=== PATIENT | male | born 1935 | race African-American/Black ===

== ENCOUNTER 2017-05-01 08:53 | Inpatient (IN) | payer OTHER ==
[~2017-05-01] VITALS: Ht 172.7 cm; Wt 47.9 kg
[2017-05-01] VITALS (57 sets, daily range): BP systolic 42–146; BP diastolic 14–100
--- NOTE | ~2017-05-01 | HC ---
[facility] [place] [address] CONSULTATION Name: TESFAYECOMPA Marly Room #: 248-P [facility] IN ..#: [id number] Admission: 05/01/17 Attend Phys: Zena Kessler MD Discharge: 05/02/17 Date of : 37 Report #: [id number] THIS REPORT FOR: //name// CC: Ant Kessler DATE OF SERVICE: 05/01/2017 REASON FOR CONSULTATION: I was asked to evaluate concerning possible septic shock. HISTORY OF PRESENT ILLNESS: The patient is an 81-year-old [facility] resident with history of Parkinson disease, dementia, hypothyroidism and hepatitis B infection. He presents to the Emergency Room with altered mental status and hypoglycemia at the [facility] with his blood sugar in the 30s. He did receive 1 amp of D50 by EMS and now his blood sugars at presentation were over 500. The patient was unable to give any details. He was cachectic. He was found to have significant acute renal failure, hypernatremia, and lactic acidosis. Initial chest x-ray was concerning for free air under the diaphragm. CT scan performed, however, shows markedly dilated colon consistent with ileus and some basilar infiltrates. ALLERGIES: No known allergies. MEDICATIONS: Prior to his admission included amlodipine, aspirin, atorvastatin, isosorbide mononitrate, lamivudine, lorazepam, melatonin, multivitamin, omeprazole, oxybutynin, Seroquel, Sinemet, and tamsulosin. PAST MEDICAL HISTORY: Dementia, Parkinson disease, hypothyroidism, dysphagia, hepatitis B, hyperlipidemia, schizophrenia, hypertension. FAMILY HISTORY: Noncontributory. SOCIAL HISTORY: Unclear other than a [facility] resident. REVIEW OF SYSTEMS: Unable to obtain. PHYSICAL EXAMINATION: GENERAL: The patient was responsive to painful stimuli. Nonverbal. VITAL SIGNS: Blood pressure 81/33 with a MAP of 48 on vasopressors, on BiPAP. Right upper extremity PICC in place. SKIN: Xerosis. The patient was cachectic. EYES: Jaundiced. NECK: Supple. LUNGS: Fine crackles heard in the bases. HEART: Regular, without murmur. [facility] [address] [place] [address] CONSULTATION Name: CARLINCOMPA Room #: 248-P [facility] IN ..#: [id number] Admission: 05/01/17 Attend Phys: Zena Kessler MD Discharge: 05/02/17 Date of : 37 Report #: [id number] ABDOMEN: Moderately distended, did not appear tender, no hepatosplenomegaly or mass appreciated. EXTERNAL GENITALIA: Unremarkable with indwelling Ramos catheter. EXTREMITIES: Unremarkable. LABORATORY STUDIES: Sodium initially 176, now 169; potassium 6.1, bicarbonate of 7, and creatinine 5.7. Blood glucose 672, calcium 7.3, AST 3362, ALT 1471, alkaline phosphatase 81, bilirubin 3.4, INR 1.4, albumin 2.8, hemoglobin 12, platelet count 35,000, white count 12.4. TSH 0.5. Urinalysis unremarkable. Influenza antigen negative. Blood cultures pending. ABG on 100% BiPAP, pO2 of 592, pCO2 of 23, pH 7.14, bicarbonate of 8, lactate of 16. IMAGING: Ultrasound of the abdomen shows sludge and gallstones in the gallbladder, otherwise unremarkable. CT of the abdomen showed some reticulonodular-type infiltrates in both lower lobes with distended colon consistent with ileus. IMPRESSION: An 81-year-old [facility] resident with schizophrenia, Parkinson's, hypertension, hepatitis B, presents with lactic acidosis and acute renal failure with hypernatremia, hyperkalemia, hepatitis, significant lactic acidosis, thrombocytopenia, bilateral basilar infiltrates. I am suspecting lactic acidosis may be related to his lamivudine that was used for his hepatitis B in the setting of his renal failure. This could give the hepatitis and lactic acidosis changes. Although removal of the lamivudine may cause a rebound in his hepatitis B, I do not think we have a choice at this time. He is critically ill. I have discussed the case with Pulmonary Medicine and nursing at the bedside. Nephrology is also assisting. PLAN: We will empirically keep him on antibiotics adjusted for his renal failure. Follow his laboratory studies closely. We will readdress his hepatitis B if he should pull through. <ELECTRONICALLY SIGNED> By: Shine Olmos MD 05/10/17 1622 [id number] Shine Olmos MD /nt
--- NOTE | ~2017-05-01 | EKG ---
[address] [address] ELECTROCARDIOGRAM REPORT Name: COMPA CARLIN Room #: 248-P [facility] IN M.R.#: [id number] Admission: 05/01/17 Attend Phys: Zena Kessler MD Discharge: 05/02/17 Date of : 37 Report #: [id number] THIS REPORT FOR: //name// [facility] ED Test Date: 2017-05-01 Test Time: 10:41:12 Pat Name: COMPA CARLIN Department: Room: 248 Gender: M Automated Access Systems Technician: Guillermo MONTANEZ : 1935 Requested By: Cornelius Nieto Order Number: [id number] MD: Tom Etienne Measurements Intervals Mcintosh Rate: 105 P: 0 IN: 108 QRS: 109 QRSD: 137 T: 47 QT: 445 QTc: 589 Interpretive Statements Sinus tachycardia Nonspecific intraventricular conduction delay Inferolateral infarct, old Artifact in lead(s) II,III,aVL,aVF,V1,V5,V6 No previous ECG available for comparison Electronically Signed On 05-02-2017 8:07:09 [employer]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
--- NOTE | ~2017-05-01 | 2DMMODE ---
[facility] [address] [place] [address] 2 D/M-MODE ECHOCARDIOGRAM Name: COMPA CARLIN Room #: 248-P [facility] IN [facility].#: [id number] Admission: 05/01/17 Attend Phys: Zena Kessler MD Discharge: 05/02/17 Date of : 37 Date of Service: 05/02/17 0846 Report #: [id number] THIS REPORT FOR: //name// APPROVED REPORT Study performed: 05/01/2017 23:23:53 EXAM: Comprehensive 2D, Doppler, and color-flow Echocardiogram Patient Location: Bedside Room #: 248 Status: stat BSA: 1.55 HR: 62 bpm BP: 117/82 mmHg Other Information Study Quality: Good Indications Arrhythmia Murmur Renal Failure 2D Dimensions LVEF(%): 24.83 (>50%) IVSd: 13.45 (7-11mm) LVOT Diam: 19.00 (18-24mm) LVDd: 46.23 mm PWd: 12.65 (7-11mm) LVDs: 40.96 (25-40mm) Aortic Root: 28.52 mm Argueta's LVEF: 24.83 % Aortic Valve AoV Peak Kannan.: 1.07 m/s AO Peak Gr.: 4.62 mmHg LVOT Max P.78 mmHg LVOT Max V: 0.66 m/s ZBIGNIEW Vmax: 1.84 cm2 AI Vmax: 3.69 m/s AI Sac: 1.21 m/s2 AI PHT: 902.64 ms Pulmonary Valve PV Peak Kannan.: 0.67 m/s PV Peak Gr.: 1.80 mmHg Left Ventricle [facility] [address] [place] [address] 2 D/M-MODE ECHOCARDIOGRAM Name: COMPA CARLIN Room #: 248-P [facility]#: [id number] Admission: 05/01/17 Attend Phys: Zena Kessler MD Discharge: 05/02/17 Date of : 37 Date of Service: 05/02/17 0846 Report #: [id number] The left ventricle is normal size. Moderate concentric left ventricular hypertrophy. Left ventricular systolic function is severely decreased. Discordant septal motion LVEF is 25%-30%. This study is not technically sufficient to allow evaluation of the LV diastolic function. Right Ventricle The right ventricle is normal size. The right ventricular systolic function is normal. Atria The left atrium size is normal. The right atrium size is normal. Aortic Valve The aortic valve is trileaflet, mildly sclerotic Mild aortic regurgitation. There is no aortic valvular stenosis. Mitral Valve The mitral valve is normal in structure. Mild mitral regurgitation. No evidence of mitral valve stenosis. Tricuspid Valve The tricuspid valve is normal in structure. Trace tricuspid regurgitation. Unable to assess PA pressure. Pt. on a ventilator. Pulmonic Valve The pulmonary valve is normal in structure. There is no pulmonic valvular regurgitation. Great Vessels The aortic root is normal in size. IVC is not visualized. Pericardium There is no pericardial effusion. <Conclusion> Moderate concentric left ventricular hypertrophy. LVEF is 25%-30%. Discordant septal motion Moderate concentric left ventricular hypertrophy. The aortic valve is trileaflet, mildly sclerotic. No stenosis. Mild aortic regurgitation. The mitral valve is normal in structure. Mild mitral regurgitation. [facility] [place] [address] 2 D/M-MODE ECHOCARDIOGRAM Name: COMPA CARLIN Room #: 248-P [facility] IN M.R.#: [id number] Admission: 05/01/17 Attend Phys: Zena Kessler MD Discharge: 05/02/17 Date of : 37 Date of Service: 05/02/17845 Report #: [id number] Pulmonary artery pressure could not be reliably ascertained There is no pericardial effusion. <ELECTRONICALLY SIGNED> By: Cosme Giang MD, [facility] 05/02/17845 5 5 Cosme Giang MD, FAC /INF
[2017-05-01 09:25] LABS: HEMOGLOBIN 12.1 gm/dL (14.0-18.0); WBC 12.4 thou/uL (4.0-11.0)
[2017-05-01 09:27] LABS: HEMATOCRIT 39.9 % (42.0-52.0); MCH 32.8 pg (26.0-34.0); MCHC 30.4 g/dL (28.0-37.0); MCV 107.9 fL (80.0-100.0); RBC 3.7 mil/uL (4.50-6.00); RDW 14.8 % (10.5-14.5)
[2017-05-01 09:37] LABS: BE(vivo) -11.3 mmol/L (-2 to +3); HCO3 12.3 mmol/L (22.0-26.0); PO2 108.8 mmHg (80.0-100.0); pH 7.341 (7.360-7.450); sO2 97.8 % (92.0-98.0)
[2017-05-01 09:38] LABS: CALCIUM 8.7 mg/dL (8.5-10.1); CREATININE 5.9 mg/dL (0.7-1.3); POTASSIUM 5.4 mmol/L (3.5-5.1)
[2017-05-01 09:45] LABS: ALBUMIN 2.8 g/dL (3.4-5.0); MAGNESIUM 4.2 mg/dL (1.8-2.4); TOTAL BILIRUBIN 3.4 mg/dL (<0.1-1.0); TOTAL PROTEIN 7.4 g/dL (6.4-8.2)
[2017-05-01 10:24] LABS: APTT 25.3 Seconds (24.5-32.8); INR 1.4; PROTIME 14.5 Seconds (9.3-11.4)
[2017-05-01 10:47] LABS: PCO2 23.3 mmHg (35.0-45.0)
[2017-05-01 11:08] LABS: URINE BILIRUBIN NEGATIVE (Negative); URINE BLOOD TRACE (Negative); URINE CLARITY SL CLOUDY; URINE COLOR YELLOW; URINE GLUCOSE-RANDOM* NEGATIVE (Negative); URINE KETONES NEGATIVE (Negative); URINE LEUKOCYTES-REFLEX NEGATIVE (Negative); URINE NITRITE-REFLEX NEGATIVE (Negative); URINE PROTEIN (DIPSTICK) TRACE (Negative); URINE SPECIFIC GRAVITY 1.025 (1.005-1.035); URINE UROBILINOGEN 0.2 E.U./dl (0.2-1.0)
[2017-05-01 14:43] LABS: BE(vivo) -19.2 mmol/L (-2 to +3); PCO2 23.7 mmHg (35.0-45.0); PO2 592.4 mmHg (80.0-100.0); pH 7.147 (7.360-7.450); sO2 99.9 % (92.0-98.0)
[2017-05-01 18:00] LABS: CALCIUM 7.3 mg/dL (8.5-10.1); CREATININE 5.7 mg/dL (0.7-1.3)
[2017-05-01 18:07] LABS: POTASSIUM 6.1 mmol/L (3.5-5.1)
[2017-05-01 20:46] LABS: FOLIC ACID > 40.0 ng/mL (8.6-58.9)
[2017-05-01 23:57] LABS: HEMATOCRIT 25.6 % (42.0-52.0); MCH 33.9 pg (26.0-34.0); MCHC 26.5 g/dL (28.0-37.0); RDW 17.5 % (10.5-14.5); WBC 10.4 thou/uL (4.0-11.0)
[2017-05-02] VITALS (9 sets, daily range): BP systolic 40–86; BP diastolic 13–67
[2017-05-02 00:08] LABS: CALCIUM 6.9 mg/dL (8.5-10.1); CREATININE 5.3 mg/dL (0.7-1.3)
[2017-05-02 00:10] LABS: HEMOGLOBIN 6.8 gm/dL (14.0-18.0); POTASSIUM 6.9 mmol/L (3.5-5.1)
[2017-05-02 00:20] LABS: ALBUMIN 1.7 g/dL (3.4-5.0); TOTAL BILIRUBIN 3.7 mg/dL (<0.1-1.0); TOTAL PROTEIN 4.9 g/dL (6.4-8.2)
[2017-05-02 00:59] LABS: BE(vivo) -28.3 mmol/L (-2 to +3); HCO3 6.4 mmol/L (22.0-26.0); PCO2 64.4 mmHg (35.0-45.0); PO2 22.2 mmHg (80.0-100.0); pH 6.615 (7.360-7.450)
== END 2017-05-02 01:27 | DRG 871 ==
LOC: ER 08:53 → EROBS 10:31 → ICU 12:03
PROVIDERS: Emergency Medicine; Hospitalist; Internal Medicine Endocrinology, Diabetes & Metabolism; Internal Medicine Pulmonary Disease
DX: A41.9 Sepsis, unspecified organism (principal); E43 Unspecified severe protein-calorie malnutrition; E87.0 Hyperosmolality and hypernatremia; B19.10 Unspecified viral hepatitis B without hepatic coma; N17.9 Acute kidney failure, unspecified; K56.7 Ileus, unspecified; G20 Parkinson's disease; F02.80 Dementia in other diseases classified elsewhere, unspecified severity, without behavioral disturbance, psychotic disturbance, mood disturbance, and anxiety; E03.9 Hypothyroidism, unspecified; E78.5 Hyperlipidemia, unspecified; I10 Essential (primary) hypertension; F20.9 Schizophrenia, unspecified; E87.5 Hyperkalemia; D69.6 Thrombocytopenia, unspecified; K72.90 Hepatic failure, unspecified without coma; K80.20 Calculus of gallbladder without cholecystitis without obstruction; N18.9 Chronic kidney disease, unspecified; E16.2 Hypoglycemia, unspecified; I95.9 Hypotension, unspecified
CPT/HCPCS: 10078; 27000